=== PATIENT | male | born 1970 | race Caucasian/White ===

== ENCOUNTER 2019-08-10 05:16 | Emergency (ER) | payer BC ==
[~2019-08-10] VITALS: Ht 177.8 cm; Wt 95.3 kg
[2019-08-10 06:00] LABS: ABSOLUTE BASOPHILS 0.1 thou/uL (0.0-0.2); ABSOLUTE EOSINOPHILS 0.1 thou/uL (0.0-0.7); ABSOLUTE LYMPHOCYTES 2.9 thou/uL (0.8-5.3); ABSOLUTE MONOCYTES 0.4 thou/uL (0.0-1.2); ABSOLUTE NEUTROPHILS 4.2 thou/uL (1.6-8.1); EOSINOPHILS 1.1 %; HEMATOCRIT 43.5 % (42.0-52.0); HEMOGLOBIN 15.2 gm/dL (14.0-18.0); LYMPHOCYTES 37.4 %; MCH 32.7 pg (26.0-34.0); MCHC 34.9 g/dL (28.0-37.0); MCV 93.6 fL (80.0-100.0); MONOCYTES 5.9 %; MPV 8.8 fl. (7.2-11.1); NUCLEATED RBCS 0 /100WBC; PLATELET COUNT* 230 thou/uL (150-400); POLYS 54.6 %; RBC 4.65 mil/uL (4.50-6.00); WBC 7.7 thou/uL (4.0-11.0)
[2019-08-10 06:10] LABS: CALCIUM 8.6 mg/dL (8.5-10.1); CREATININE 1.2 mg/dL (0.6-1.3); POTASSIUM 4.1 mmol/L (3.5-5.1)
[2019-08-10 06:11] LABS: PROTIME 10.4 Seconds (9.20-11.50)
[2019-08-10 06:15] LABS: ALBUMIN 3.8 g/dL (3.4-5.0); TOTAL BILIRUBIN 0.3 mg/dL (<0.1-1.0); TOTAL PROTEIN 6.9 g/dL (6.4-8.2)
[2019-08-10 07:25] VITALS: BP 119/75
--- NOTE | 2019-08-10 12:22 | EKG ---
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
== END 2019-08-10 07:26 | disposition home or self-care (01) ==
LOC: M.ERS 05:16 → EDSEX 05:16 → M.ERS 07:26
PROVIDERS: Family Medicine
DX: F41.0 Panic disorder [episodic paroxysmal anxiety] (principal)

== ENCOUNTER 2019-11-26 20:45 | Emergency (ER) | payer BC ==
[~2019-11-26] VITALS: Ht 177.8 cm; Wt 90.7 kg
[2019-11-26] MEDS ORDERED: NAPROSYN500 MG PO (22:11)
[2019-11-26 22:25] VITALS: BP 144/79
== END 2019-11-26 22:25 | disposition home or self-care (01) ==
LOC: M.ERS 20:45
DX: S50.11XA Contusion of right forearm, initial encounter (principal); F17.210 Nicotine dependence, cigarettes, uncomplicated; W22.8XXA Striking against or struck by other objects, initial encounter; Y93.89 Activity, other specified; Y92.89 Other specified places as the place of occurrence of the external cause; Y99.8 Other external cause status

== ENCOUNTER 2019-12-15 10:01 | Emergency (ER) | payer BC ==
[~2019-12-15] VITALS: Ht 177.8 cm; Wt 95.3 kg
[~2019-12-15 10:01] MED LIST: NAPROSYN500 MG PO
[2019-12-15] MEDS ORDERED: ZOFRAN ODT4 MG PO (10:40)
[2019-12-15] MEDS ORDERED: HYDROCODON-ACE1 EAC7 PO (10:40)
[2019-12-15 11:03] LABS: ABSOLUTE BASOPHILS 0.1 thou/uL (0.0-0.2); ABSOLUTE EOSINOPHILS 0.1 thou/uL (0.0-0.7); ABSOLUTE LYMPHOCYTES 2.9 thou/uL (0.8-5.3); ABSOLUTE MONOCYTES 0.6 thou/uL (0.0-1.2); ABSOLUTE NEUTROPHILS 5.9 thou/uL (1.6-8.1); BASOPHILS 0.9 %; EOSINOPHILS 1.4 %; HEMATOCRIT 44.8 % (42.0-52.0); HEMOGLOBIN 15.7 gm/dL (14.0-18.0); LYMPHOCYTES 30.5 %; MCH 32.4 pg (26.0-34.0); MCV 92.6 fL (80.0-100.0); MONOCYTES 5.8 %; MPV 8.1 fl. (7.2-11.1); NUCLEATED RBCS 0 /100WBC; PLATELET COUNT* 267 thou/uL (150-400); POLYS 61.4 %; RBC 4.84 mil/uL (4.50-6.00); RDW-CV 12.8 % (10.5-14.5); WBC 9.6 thou/uL (4.0-11.0)
[2019-12-15 11:10] LABS: BE -2.1 mmol/L (-2 to +3); PCO2 26.2 mmHg (35.0-45.0); pH 7.487 (7.340-7.450)
[2019-12-15 11:11] LABS: CALCIUM 8.5 mg/dL (8.5-10.1); POTASSIUM 4.5 mmol/L (3.5-5.1)
[2019-12-15 11:12] LABS: PO2 134.3 mmHg (75.0-100.0)
[2019-12-15 11:15] LABS: ALBUMIN 3.4 g/dL (3.4-5.0); TOTAL BILIRUBIN 0.4 mg/dL (<0.1-1.0); TOTAL PROTEIN 7.2 g/dL (6.4-8.2)
[2019-12-15 12:20] VITALS: BP 145/75
--- NOTE | 2019-12-16 09:10 | EKG ---
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1970 Requested By: Mihai Tafoya Order Number: [id number] Jolie MD: Abilio Kumar Measurements Intervals [place] Rate: 81 P: 59 MD: 178 QRS: -3 QRSD: 85 T: 53 QT: 379 QTc: 440 Interpretive Statements Sinus rhythm Abnormal R-wave progression, early transition Compared to ECG 08/10/2019 05:18:19 Right ventricular hypertrophy no longer present Electronically Signed On 12-16-2019 9:09:45 CDT by Abilio Kumar [email or web address] <ELECTRONICALLY SIGNED> By: Abilio Kumar MD, [facility] 12/16/19 0909 1035 1035 Abilio Kumar MD, [facility] /EPI
--- NOTE | 2019-12-16 09:10 | EKG ---
[place] [address] ELECTROCARDIOGRAM REPORT Name: MEHDI CAMACHO Room: 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1970 Requested By: Mihai Tafoya Order Number: [id number] Jolie MD: Abilio Kumar Measurements Intervals [place] Rate: 80 P: 57 AR: 181 QRS: -5 QRSD: 85 T: 45 QT: 376 QTc: 434 Interpretive Statements Sinus rhythm Consider right atrial enlargement Abnormal R-wave progression, early transition Compared to ECG 12/15/2019 10:35:44 No significant changes Electronically Signed On 12-16-2019 9:09:43 CDT by Abilio Kumar [email or web address] <ELECTRONICALLY SIGNED> By: Abilio Kumar MD, [facility] 12/16/19 0909 1036 1036 Abilio Kumar MD, [facility] /EPI
== END 2019-12-15 12:22 | disposition home or self-care (01) ==
LOC: M.ERS 10:01
PROVIDERS: Emergency Medicine
DX: J06.9 Acute upper respiratory infection, unspecified (principal); F41.9 Anxiety disorder, unspecified; F17.210 Nicotine dependence, cigarettes, uncomplicated

== ENCOUNTER 2021-06-05 01:28 | Emergency (ER) | payer OTHER ==
[~2021-06-05] VITALS: Ht 177.8 cm; Wt 95.3 kg
[~2021-06-05 01:28] MED LIST changes: +HYDROCODON-ACE1 EAC7 PO; +ZOFRAN ODT4 MG PO
[2021-06-05 04:16] VITALS: BP 122/62
== END 2021-06-05 04:16 | disposition home or self-care (01) ==
LOC: M.ERS 01:28
DX: S91.312A Laceration without foreign body, left foot, initial encounter (principal); S91.115A Laceration without foreign body of left lesser toe(s) without damage to nail, initial encounter; W23.0XXA Caught, crushed, jammed, or pinched between moving objects, initial encounter; Y93.89 Activity, other specified; Y92.89 Other specified places as the place of occurrence of the external cause; Y99.8 Other external cause status